=== PATIENT | male | born 1990 | race Two or more races ===

== ENCOUNTER → 2024-05-26 | Outpatient (BNVA) | payer MEDICAID, SELFPAY | END | disposition home or self-care (01) | PROVIDERS: PCP Nurse Practitioner Family; Referring Provider Nurse Practitioner Family; Visit Provider Nurse Practitioner Family | DX: J06.9 Acute upper respiratory infection, unspecified (principal) | CPT/HCPCS: 87804; 87811; 99214 ==

== ENCOUNTER → 2024-05-30 | Outpatient (BNVA) | payer MEDICAID, SELFPAY | END | disposition home or self-care (01) | PROVIDERS: PCP Nurse Practitioner Family; Referring Provider Nurse Practitioner Family; Visit Provider Nurse Practitioner Family | DX: Z71.2 Person consulting for explanation of examination or test findings (principal); B34.8 Other viral infections of unspecified site | CPT/HCPCS: 99212; G0463 ==

== ENCOUNTER → 2024-07-07 | Outpatient (BNVA) | payer MEDICAID, SELFPAY | END | disposition home or self-care (01) | PROVIDERS: PCP Nurse Practitioner Family; Referring Provider Nurse Practitioner Family; Visit Provider Nurse Practitioner Family | DX: R10.11 Right upper quadrant pain (principal); R11.2 Nausea with vomiting, unspecified | CPT/HCPCS: 99214 ==

== ENCOUNTER → 2024-08-01 | Outpatient (BNVA) | payer MEDICAID, SELFPAY | END | disposition home or self-care (01) | PROVIDERS: PCP Nurse Practitioner Family; Referring Provider Nurse Practitioner Family; Visit Provider Nurse Practitioner Family | DX: M54.9 Dorsalgia, unspecified (principal); R10.11 Right upper quadrant pain; E78.2 Mixed hyperlipidemia; E78.49 Other hyperlipidemia; R11.2 Nausea with vomiting, unspecified; Z71.2 Person consulting for explanation of examination or test findings | CPT/HCPCS: 99214 ==

== ENCOUNTER → 2024-08-03 | Outpatient (BNVA) | payer MEDICAID, SELFPAY | END | disposition home or self-care (01) | PROVIDERS: PCP Nurse Practitioner Family; Referring Provider Nurse Practitioner Family; Visit Provider Nurse Practitioner Family | DX: E78.49 Other hyperlipidemia (principal); E78.2 Mixed hyperlipidemia | CPT/HCPCS: 99213 ==

== ENCOUNTER → 2024-08-03 | Outpatient (CLI) | payer MEDICAID, SELFPAY ==
--- NOTE | 2024-08-03 14:40 | XR_ITS ---
Examination: Lumbar spine, 5 views Technique: Lumbar spine AP, lateral, coned lateral lower lumbar spine, bilateral obliques 5 views Exam date and time: July 24, 2024 at 1450 hrs. Indications: Back pain beginning 2 weeks ago. Findings: Mild osteopenia. Intact pedicles. No cortical bone destruction. Adequate alignment lumbar vertebral bodies on the lateral view. Mild disc narrowing L5-S1 Impression: Mild disc narrowing L5-S1
--- NOTE | 2024-08-03 14:40 | XR_ITS ---
Examination: Thoracic spine 3 views Technique: AP lateral coned lateral upper dorsal spine 3 views Exam date and time: July 24, 2024, 1450 hrs. Indications: Back beginning 2 weeks ago. Findings: Adequate alignment thoracic vertebral bodies on the lateral view Minimal thoracic spondylosis No thoracic fracture Intact pedicles No significant thoracic disc narrowing Impression: Minimal thoracic spondylosis
== END | disposition home or self-care (01) ==
PROVIDERS: PCP Nurse Practitioner Family; Referring Provider Nurse Practitioner Family; Visit Provider Nurse Practitioner Family
DX: M48.07 Spinal stenosis, lumbosacral region (principal); M47.814 Spondylosis without myelopathy or radiculopathy, thoracic region
CPT/HCPCS: 72070; 72110

== ENCOUNTER → 2024-09-05 | Outpatient (BNVA) | payer MEDICAID, SELFPAY | END | disposition home or self-care (01) | PROVIDERS: PCP Nurse Practitioner Family; Referring Provider Nurse Practitioner Family; Visit Provider Nurse Practitioner Family | DX: M54.9 Dorsalgia, unspecified (principal); M43.04 Spondylolysis, thoracic region; E78.5 Hyperlipidemia, unspecified; Z71.2 Person consulting for explanation of examination or test findings; E78.49 Other hyperlipidemia | CPT/HCPCS: 99214 ==

== ENCOUNTER → 2025-03-30 | Outpatient (BNVA) | payer MEDICAID, SELFPAY | END | disposition home or self-care (01) | PROVIDERS: PCP Nurse Practitioner Family; Referring Provider Nurse Practitioner Family; Visit Provider Nurse Practitioner Family | DX: Z00.01 Encounter for general adult medical examination with abnormal findings (principal); R10.11 Right upper quadrant pain; E78.5 Hyperlipidemia, unspecified; G47.00 Insomnia, unspecified; Z13.1 Encounter for screening for diabetes mellitus; Z11.3 Encounter for screening for infections with a predominantly sexual mode of transmission; Z71.85 Encounter for immunization safety counseling; Z28.21 Immunization not carried out because of patient refusal; R94.5 Abnormal results of liver function studies; G43.919 Migraine, unspecified, intractable, without status migrainosus | CPT/HCPCS: 99173; 99215 ==

== ENCOUNTER → 2025-04-13 | Outpatient (BNVA) | payer MEDICAID, SELFPAY | END | disposition home or self-care (01) | PROVIDERS: PCP Nurse Practitioner Family; Referring Provider Nurse Practitioner Family; Visit Provider Nurse Practitioner Family | DX: Z71.2 Person consulting for explanation of examination or test findings (principal); Z28.21 Immunization not carried out because of patient refusal; E78.5 Hyperlipidemia, unspecified | CPT/HCPCS: 99213 ==